=== PATIENT | female | born 1995 | race American Indian/Alaskan Native ===

== ENCOUNTER 2017-06-23 21:54 | Emergency (ER) | payer SELFPAY ==
[2017-06-23 22:39] VITALS: BP 132/67
[2017-06-23 23:45] LABS: Basophils % (Auto) 0.6 % (0.0-1.8); Eosinophils # (Auto) 0.1 K/mm3 (0.0-0.4); Eosinophils % (Auto) 1.3 % (0.0-4.3); Hematocrit 41.1 % (30.3-42.9); Hemoglobin 13.5 gm/dl (10.1-14.3); Lymphocytes # (Auto) 2.4 K/mm3 (1.2-5.4); Lymphocytes % (Auto) 36.3 % (13.4-35.0); Mean Corpuscular HGB Conc 33 % (30-34); Mean Corpuscular Hemoglobin 29 pg (28-32); Mean Corpuscular Volume 88 fl (79-97); Monocytes # (Auto) 0.5 K/mm3 (0.0-0.8); Monocytes % (Auto) 6.8 % (0.0-7.3); Platelet Count 212 K/mm3 (140-440); Red Blood Count 4.67 M/mm3 (3.65-5.03); Red Cell Distribution Width 13.6 % (13.2-15.2)
[2017-06-23 23:58] LABS: BUN/Creatinine Ratio 11; Blood Urea Nitrogen 9 mg/dL (7-17); Calcium 9.6 mg/dL (8.4-10.2); Hemolysis Index 15
[2017-06-24 04:07] LABS: Bacteria,Urine 1+ /HPF (Negative); Bilirubin,Urine NEG (Negative); Blood,Urine LG (Negative); Color,Urine Yellow (Yellow); Mucus,Urine 3+ /HPF; Nitrite,Urine NEG (Negative)
[2017-06-24 04:09] LABS: Amphetamine Screen,Urine PRESUMPTIVE NEGATIVE; Benzodiazepines Screen,Urine PRESUMPTIVE NEGATIVE; Cocaine Screen,Urine PRESUMPTIVE NEGATIVE; Methadone Screen,Urine PRESUMPTIVE NEGATIVE; Opiate Screen,Urine PRESUMPTIVE NEGATIVE
[2017-06-24 04:22] LABS: Cannabinoid Screen,Urine PRESUMPTIVE POSITIVE
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
== END 2017-06-24 09:05 | disposition left against medical advice (07) ==
LOC: ED 21:54
DX: M54.6 Pain in thoracic spine (principal); Z79.899 Other long term (current) drug therapy
CPT/HCPCS: 36415; 80048; 80307; 81001; 84702; 85025; 99283; G0480; 80320

== ENCOUNTER 2017-07-31 19:17 | Emergency (ER) | payer OTHER ==
[2017-07-31] MEDS ORDERED: ATIVAN IM ONE (20:25)
[2017-07-31] MEDS ORDERED: BENADRYL IM ONE (20:25)
--- NOTE | 2017-07-31 20:30 | Emergency Department Report ---
ED Psych HPI - General Chief Complaint: Psych Stated Complaint: Mental Health Time Seen by Provider: 07/31/17 20:24 Source: family Mode of arrival: Ambulatory - History of Present Illness Initial Comments: This is a 22-year-old patient who comes to the emergency room to be evaluated for possible . Apparently she was at [facility] about a month ago or a couple weeks ago and was told she was . However she was also put on a 1013. The patient here is very loud, belligerent, angry, wants to know if she is or not. She states that if she is that she doesn't want it. She states that she wants a medical marijuana card. She is refusing blood draws. She finally gave a urine sample. She admits to smoking marijuana but denies smoking cigarettes and denies alcohol use. It appears at this time that she is having an acute psychotic episode. She was seen here in June and a very similar episode happened then as it is today. She has pressured speech, she keeps repeating herself, she speaks at the top of her voice, she is cussing frequently, and is very demanding. She insists that she is even though in review of the past medical records she was not at her last visit here. She denies want to hurt herself at this time but she is not cooperative and it seems that she could inadvertently be a harm to herself. She also admits that she voluntarily placed herself into an inpatient psychiatric facility in the past. At her last visit to the emergency room the patient did elope. Complaint: other -: Sudden Associated Psychiatric Symptoms: other (paranoia, anger, delusional in thinking that she is when she has been told she is not) Quality: getting worse Improves With: none Worsens With: none Context: recent drug abuse (admits to marijuana use) Associated Symptoms: denies: confusion, headache, shortness of breath, nausea, vomiting, syncope, insomnia Treatments Prior to Arrival: none - Related Data Allergies Allergy/AdvReac Type Severity Reaction Status Date / Time No Known Allergies Allergy Unverified 06/23/17 22:39 ED Review of Systems ROS: Stated complaint: Mental Health Other details as noted in HPI Comment: Unobtainable due to pts medical conditions (the patient at times will not cooperate. She is standing in the hallway yelling. His demanding an HIV test and a test. And she is demanding a medical marijuana card.) ED Past Medical Hx - Past Medical History Additional medical history: SCOLIOSIS - Social History Smoking Status: Never Smoker Substance Use Type: Marijuana ED Physical Exam - General Limitations: Physical Limitation General appearance: alert, other (uncooperative) - Head Head exam: Present: atraumatic, normocephalic - Eye Eye exam: Present: normal appearance - ENT ENT exam: Present: normal exam - Neck Neck exam: Present: normal inspection - Respiratory Respiratory exam: Present: other (will not cooperate with exam) - Cardiovascular Cardiovascular Exam: Present: other (will not cooperate with exam) - GI/Abdominal GI/Abdominal exam: Present: other (will not cooperate with exam) - Rectal Rectal exam: Present: deferred - Extremities Exam Extremities exam: Present: normal inspection - Back Exam Back exam: Present: normal inspection - Neurological Exam Neurological exam: Present: alert, oriented X3, CN II-XII intact - Psychiatric Psychiatric exam: Present: agitated, anxious, manic - Skin Skin exam: Present: warm, dry, intact, normal color ED Course - Reevaluation(s) Reevaluation #1: 07/31/17 20:36 The patient is refusing to let us draw blood. She pulls out a bill from [facility] and the amount of over $900 and is asking why she has a bill for this much. She states that nothing was done for her last time she was here. She becomes very angry. I explained to her that in order for us to determine whether she is or not we need to get either a urine sample or a blood sample. I asked if she would be willing to take medications if we gave it to her. She said she would only take marijuana for Manjit to her. I told her that is not happening. I told her the state [facility] medical marijuana is not legal. I told her also that I may need to give her some medicine to help calm her down. She states that she only wants marijuana. At this time I feel that the patient is a danger to herself and has delusions and paranoia. At this time I will need to make her a 1013. We will need to get mental health involved. I will also go ahead and give her Ativan 2 mg as well as Benadryl 50 mg IM. If the test comes back negative then we will also give her some Haldol 5 mg IM. 07/31/17 21:21 Her urine test is negative. I also spoke to the GRAPHIC DESIGN INTERN doctor television maintenance man just to clarify the use of Haldol in first trimester . The OB doctor did say that if she was indeed it would still be okay to give her the Haldol because the benefits outweigh the risks. For sure she is not . I believe this again falls under her being delusional. She may have undiagnosed schizophrenia at this time. She does exhibit paranoia. When she handed me the bill of her previous hospital visit she hesitated and said that I was going to tear it up before I handed it back to her and suspiciously would not give me the paper to review. 07/31/17 21:57 Discussed the case with mental health. It appears that she is having a psychotic episode. She may have undiagnosed paranoid schizophrenia. At this time we'll continue to make the patient 1013 and await placement. We also may need to get medications here from time to time. I did give her Haldol 5 mg, Ativan 2 mg and Benadryl 50 mg. This did seem to help the patient calm down. She is no longer yelling in the hallways and cursing at individuals. Critical care attestation.: If time is entered above; I have spent that time in minutes in the direct care of this critically ill patient, excluding procedure time. ED Disposition Clinical Impression: Acute psychosis, Paranoid schizophrenia Disposition: DC/TX-65 PSY HOSP/PSY UNIT Is pt being admited?: No Does the pt Need Aspirin: No Condition: Stable
[2017-07-31 20:37] LABS: Bilirubin,Urine NEG (Negative); Blood,Urine NEG (Negative); Color,Urine Yellow (Yellow); Hyaline Casts,Urine 1 /LPF; Mucus,Urine FEW /HPF
[2017-07-31] MEDS ORDERED: HALDOL IM ONE (20:42)
[2017-07-31 20:45] LABS: Amphetamine Screen,Urine PRESUMPTIVE NEGATIVE; Benzodiazepines Screen,Urine PRESUMPTIVE NEGATIVE; Cocaine Screen,Urine PRESUMPTIVE NEGATIVE; Methadone Screen,Urine PRESUMPTIVE NEGATIVE; Opiate Screen,Urine PRESUMPTIVE NEGATIVE
[2017-07-31 20:56] LABS: HCG Qualitative,Urine Negative (Negative)
[2017-07-31 20:58] LABS: Cannabinoid Screen,Urine PRESUMPTIVE POSITIVE
[2017-07-31 21:57] LABS: Basophils % (Auto) 0.4 % (0.0-1.8); Eosinophils % (Auto) 0.6 % (0.0-4.3); Hemoglobin 13.9 gm/dl (10.1-14.3); Lymphocytes # (Auto) 2.7 K/mm3 (1.2-5.4); Lymphocytes % (Auto) 38.4 % (13.4-35.0); Mean Corpuscular HGB Conc 34 % (30-34); Mean Corpuscular Hemoglobin 30 pg (28-32); Mean Corpuscular Volume 88 fl (79-97); Monocytes # (Auto) 0.6 K/mm3 (0.0-0.8); Monocytes % (Auto) 7.9 % (0.0-7.3); Platelet Count 242 K/mm3 (140-440); Red Blood Count 4.67 M/mm3 (3.65-5.03); Red Cell Distribution Width 14.1 % (13.2-15.2)
[2017-07-31 22:07] LABS: BUN/Creatinine Ratio 11; Blood Urea Nitrogen 9 mg/dL (7-17); Calcium 9.5 mg/dL (8.4-10.2); Hemolysis Index 10
[2017-08-01] MEDS ORDERED: ATIVAN IM ONE (18:20)
[2017-08-01] MEDS ORDERED: HALDOL IM ONE (18:20)
[2017-08-01] MEDS ORDERED: ATIVAN ONE (18:21)
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
[2017-08-02] MEDS ORDERED: HALDOL ONE (08:18)
[2017-08-02] MEDS ORDERED: BENADRYL ONE (08:18)
[2017-08-02] MEDS ORDERED: ATIVAN ONE (08:19)
[2017-08-02] MEDS ORDERED: BENADRYL IM ONE (08:25)
[2017-08-02] MEDS ORDERED: ATIVAN IM ONE (08:26)
[2017-08-02] MEDS ORDERED: HALDOL IM ONE (08:28)
--- NOTE | 2017-08-02 15:22 | Progress Note ---
Subjective - Reason for Consult Consult date: 08/02/17 Reason for consult: Psychiatry Follow-up - Chief Complaint Chief complaint: "The patient is sedated" 21 year old female who presents to [facility] for delusional and paranoid thoughts. Today the patient was sedated and not able to cooperate during the interview. Per the notes, the patient was given prn medication for acute agitation. Mental Status Exam - Vital signs Last Vital Signs Temp 98 F 08/01/17 19:45 Pulse 76 08/01/17 19:45 Resp 16 08/01/17 19:45 BP 113/71 08/01/17 19:45 Pulse Ox 100 08/01/17 19:45 - Exam Narrative exam: Unable to complete the MSE because of patient condition. Assessment and Plan Impression: Unspecified Mood DO with psy features on admission. Cannabis Use DO. The patient is sedated. DDx: R/O Bipolar DO, R/O Schizophrenia, R/O Substance Induced Psychosis Recommendation/Plan: Continue 1013 with placement to inpatient psy services. Continue Zyprexa 5 mg PO HS for mood/psychosis. Attempt to reassess patient in 24 hours.
[2017-08-02] MEDS ORDERED: GEODON PO SCH (22:00)
[2017-08-03 11:29] VITALS: BP 113/75
== END 2017-08-03 11:49 ==
LOC: ED 19:17
DX: F20.0 Paranoid schizophrenia (principal); F12.10 Cannabis abuse, uncomplicated
CPT/HCPCS: 36415; 80048; 80307; 81001; 81025; 85025; 96372; 99285; G0480; J1200; J1630; J2060; 80320

== ENCOUNTER 2019-01-27 23:43 | Emergency (ER) | payer SELFPAY ==
[2019-01-28 00:27] LABS: Basophils # (Auto) 0.1 K/mm3 (0.0-0.1); Basophils % (Auto) 1.3 % (0.0-1.8); Eosinophils # (Auto) 0.1 K/mm3 (0.0-0.4); Eosinophils % (Auto) 1.1 % (0.0-4.3); Hematocrit 42.7 % (30.3-42.9); Hemoglobin 14.2 gm/dl (10.1-14.3); Lymphocytes # (Auto) 3.1 K/mm3 (1.2-5.4); Lymphocytes % (Auto) 43.4 % (13.4-35.0); Mean Corpuscular HGB Conc 33 % (30-34); Mean Corpuscular Volume 89 fl (79-97); Monocytes # (Auto) 0.6 K/mm3 (0.0-0.8); Platelet Count 226 K/mm3 (140-440); Red Blood Count 4.81 M/mm3 (3.65-5.03); Red Cell Distribution Width 13.6 % (13.2-15.2)
[2019-01-28 00:49] LABS: Alanine Aminotransferase 6 units/L (7-56); Albumin 4.3 g/dL (3.9-5); BUN/Creatinine Ratio 13; Blood Urea Nitrogen 12 mg/dL (7-17); Calcium 9.3 mg/dL (8.4-10.2); Hemolysis Index 11
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
[2019-01-28 02:41] LABS: Bacteria,Urine 1+ /HPF (Negative); Bilirubin,Urine NEG (Negative); Blood,Urine NEG (Negative); Color,Urine Yellow (Yellow); Mucus,Urine 1+ /HPF; Protein,Urine <15 mg/dL mg/dL (Negative); Urobilinogen,Urine < 2.0 mg/dL (<2.0)
[2019-01-28 02:53] LABS: Amphetamine Screen,Urine PRESUMPTIVE NEGATIVE; Benzodiazepines Screen,Urine PRESUMPTIVE NEGATIVE; Cocaine Screen,Urine PRESUMPTIVE NEGATIVE; Methadone Screen,Urine PRESUMPTIVE NEGATIVE; Opiate Screen,Urine PRESUMPTIVE NEGATIVE
[2019-01-28 03:33] LABS: Cannabinoid Screen,Urine PRESUMPTIVE POSITIVE
[2019-01-28] MEDS ORDERED: GEODON IM ONE ×3 (05:58→16:23)
--- NOTE | 2019-01-28 11:01 | Consultation ---
History of Present Illness - Reason for Consult Consult date: 01/28/19 Reason for consult: Mental Health Evaluation Requesting physician: SANDI ALSTON - Chief Complaint Chief complaint: "I am being poisoned" - History of Present Psychiatric Illness 23 y.o. AA female who presented to the ER for acute psychosis. This patient is known to me. Today the patient was somewhat cooperative during the assessment. She stated that she feel like her mother is trying to give her "HIV." She could not logically explain why her mother is trying to give her HIV when asked. Also, she believe that she is . Per her labs, her HCG test is negative. The patient's presentation is similar to her previous ER visit Jul 2017. She did state that she have been up for several days without sleep prior to this ER visit. Overall, the patient's insight is limited to poor. She denies SI/HI's. Medications and Allergies Allergies Allergy/AdvReac Type Severity Reaction Status Date / Time No Known Allergies Allergy Unverified 06/23/17 22:39 Home Medications Medication Instructions Recorded Confirmed Last Taken Type Unobtainable 07/31/17 01/28/19 Unknown History Past psychiatric history - Past Medical History Past Medical History: No medical history, other Past Surgical History: No surgical history - past Psychiatric treatment and history psychiatric treatment history: Several inpatient psy services in the past. Denies a fam psy hx. - Social History Social history: lives with family Mental Status Exam - Vital signs Last Vital Signs Temp 98.6 F 01/28/19 02:18 Pulse 82 01/28/19 02:18 Resp 18 01/28/19 02:18 BP 128/76 01/28/19 02:18 Pulse Ox 98 01/28/19 02:18 - Exam Narrative exam: MSE: Appearance: in hospital attire Behavior: regular eye contact Speech: regular rate and tone Mood: "okay" Affect: congruent to mood Thought Process: tangential Thought Content: denies SI/HI's, delusional, paranoia Motor Activity: laying in bed Cognition: A/O x3 Insight: poor Judgment: poor Results Result Diagrams: 01/27/19 23:55 01/27/19 23:55 Abnormal lab results 01/27/19 01/27/19 01/27/19 Range/Units 23:55 23:55 23:55 Lymph % (Auto) 43.4 H (13.4-35.0) % Wallace % (Auto) 8.0 H (0.0-7.3) % Potassium (3.6-5.0) mmol/L Carbon Dioxide (22-30) mmol/L Glucose (65-100) mg/dL ALT (7-56) units/L Salicylates < 0.3 L (2.8-20.0) mg/dL Acetaminophen < 5.0 L (10.0-30.0) ug/mL 01/27/19 Range/Units 23:55 Lymph % (Auto) (13.4-35.0) % Wallace % (Auto) (0.0-7.3) % Potassium 3.5 L (3.6-5.0) mmol/L Carbon Dioxide 18 L (22-30) mmol/L Glucose 113 H (65-100) mg/dL ALT 6 L (7-56) units/L Salicylates (2.8-20.0) mg/dL Acetaminophen (10.0-30.0) ug/mL All other labs normal. Assessment and Plan Assessment and plan: Impression: Unspecified Psychosis. Cannabis Use DO. The patient was somewhat cooperative during the assessment. DDx: Bipolar DO with psychosis, Substance Induced Psychosis Recommendation/Plan: Continue 1013 and start Zyprexa 5 mg PO HS for psychosis. Attempted to discuss possible metabolic side effects of Zyprexa with the patient. Baseline A1c/Lipid Panel ordered for the AM. Dispo: The patient was referred to inpatient psy services. Will staff with Dr Michel Arroyo.
[2019-01-28] MEDS ORDERED: ATIVAN IM PRN (19:30)
[2019-01-28] MEDS: MELATONIN PO SCH (22:12)
--- NOTE | 2019-01-29 14:20 | Progress Note ---
Subjective - Reason for Consult Consult date: 01/29/19 Reason for consult: Psychiatric Follow-up Evaluation - Chief Complaint Chief complaint: "Slightly aggravated" Patient is a 23 y.o. AA female who presented to the ER for acute psychosis. This patient is known to me. Today the patient was somewhat cooperative but irritable during the assessment. Patient continues to have paranoid delusions toward the staff and her mother. She states " the bitch tried to kill me. She tried to give me AIDS, it's a difference between HIV and AIDS. " Mood is easily irritable. Patient denies SI/HI's and A/VH's. 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 The patient was somewhat cooperative but irritable during the assessment. DDx: Bipolar DO with psychosis, Substance Induced Psychosis Recommendation/Plan: 1. Continue 1013. 2. Continue Zyprexa 5 mg PO HS for psychosis. Attempted to discuss possible metabolic side effects of Zyprexa with the patient. Baseline A1c/Lipid Panel ordered for the AM. Disposition: The patient was referred to inpatient psychiatric services. Will staff with Dr. Michel Arroyo.
[2019-01-29] MEDS ORDERED: GEODON IM ONE ×2 (14:30→14:38)
[2019-01-29] MEDS ORDERED: IBUPROFEN PO ONE (14:50)
[2019-01-29] MEDS: MELATONIN PO SCH (22:47)
--- NOTE | 2019-01-30 11:01 | Progress Note ---
Subjective - Reason for Consult Consult date: 01/30/19 Reason for consult: Psyhcistry Follow-up - Chief Complaint Chief complaint: "My mother is trying to give me HIV" Patient is a 23 y.o. AA female who presented to the ER for acute psychosis. This patient is known to me. Today the patient was irritable during the assessment. She is adamant that her mother is trying to give her HIV. She became loud with me the provider when she was asked several questions about her mental health. She denies SI/HI's and AVH's. No indication of side effecst from her medication. 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 The patient was irritable during the assessment. DDx: Bipolar DO with psychosis, Substance Induced Psychosis Recommendation/Plan: Continue 1013 and Zyprexa 5 mg PO HS for psychosis. Attempted to discuss possible metabolic side effects of Zyprexa with the patient. Baseline A1c/Lipid Panel ordered for the AM. Dispo: The patient was accepted at [facility] for inpatient psy services pending transport time. Will staff with Dr Michel Arroyo.
[2019-01-30 19:35] VITALS: BP 125/89
== END 2019-01-30 19:36 ==
LOC: ED 23:43 → EEVIPCON 23:43 → ED 01-30 19:36
DX: F23 Brief psychotic disorder (principal); F22 Delusional disorders; F12.10 Cannabis abuse, uncomplicated
CPT/HCPCS: 36415; 80053; 80307; 81001; 83690; 84703; 85025; 96372; 99285; J3486; 80320; G0480